=== PATIENT | male | born 1970 | race African-American/Black ===

== ENCOUNTER 2019-12-15 19:14 | Emergency (ER) | payer SELFPAY ==
[~2019-12-15] VITALS: Ht 180.3 cm; Wt 65.0 kg
[2019-12-15 19:17] VITALS: BP 110/65
--- NOTE | 2019-12-15 19:41 | NUR ---
SEATED IN CHAIR AT NURSES STATION IN VIEW OF STAFF FOR PT SAFETY. AWAIT TO [place].
--- NOTE | 2019-12-15 20:04 | NUR ---
TALKING WITH DR YAP AT THIS TIME, REMAINS IN CHAIR AT NURSES STATION, [facility].
[2019-12-15] MEDS ORDERED: OLANZAPINE 10 MG TABLET ONE (20:35)
--- NOTE | 2019-12-15 20:41 | NUR ---
MEDICATED PER ORDER, PT TAKING PO FLUIDS, REMAINS SEATED IN CHAIR AT NURSES STATION.
--- NOTE | 2019-12-15 20:44 | NUR ---
LABS BEING DRAWN AT THIS TIME, PT TOLERATE WELL.
[2019-12-15] MEDS ORDERED: PLEASE ENTER ALLERGIES MC SCH (21:00)
[2019-12-15] MEDS ORDERED: OLANZAPINE ODT 10MG PO ONE (21:00)
[2019-12-15 21:13] LABS: ALANINE AMINOTRANSFERASE 39 U/L (12-78); ALBUMIN 3.6 g/dL (3.4-5.0); ANION GAP 3 mmol/L (5-15); CHLORIDE 108 mmol/L (98-107); CREATININE 1.09 mg/dL (0.7-1.3)
[2019-12-15 21:14] LABS: ALKALINE PHOSPHATASE 104 U/L (45-117); BILIRUBIN,TOTAL 0.4 mg/dL (0.2-1.0); TOTAL PROTEIN 7.3 g/dL (6.4-8.2)
== END 2019-12-15 21:42 | disposition home or self-care (01) ==
LOC: ED 19:24
DX: F20.9 Schizophrenia, unspecified (principal); F31.9 Bipolar disorder, unspecified
CPT/HCPCS: 36415; 80053; 99284

== ENCOUNTER 2019-12-18 23:26 | Emergency (ER) | payer OTHER ==
[~2019-12-18] VITALS: Ht 180.3 cm; Wt 67.4 kg
[2019-12-18 23:27] VITALS: BP 142/99
[2019-12-19 01:02] LABS: BASOPHILS # (AUTO) 0.01 x10^3/uL (0-0.1); BASOPHILS % (AUTO) 0 % (0-1); EOSINOPHILS # (AUTO) 0.06 x10^3/uL (0-0.4); EOSINOPHILS % (AUTO) 1 % (1-7); LYMPHOCYTES # (AUTO) 1.01 x10^3/uL (1-3.4); LYMPHOCYTES % (AUTO) 12 % (22-44); MD NO; MEAN CORPUSCULAR HEMOGLOBIN 28.4 pg (27.5-34.5); MEAN PLATELET VOLUME 7.9 fL (7.4-10.4); MONOCYTES # (AUTO) 0.67 x10^3/uL (0.2-0.8); MONOCYTES % (AUTO) 8 % (2-9); NEUTROPHILS # (AUTO) 6.45 x10^3/uL (1.8-6.8); NEUTROPHILS % (AUTO) 79 % (42-75); PLATELET COUNT 301 x10^3/uL (130-400); RED BLOOD COUNT 5.39 x10^6/uL (4.38-5.82); RED CELL DISTRIBUTION WIDTH 14.9 % (9.4-14.8)
--- NOTE | 2019-12-19 01:06 | NUR ---
PT SITTING AT NURSES STATION OUT SIDE T 1 AWAITING A ROOM
[2019-12-19 01:07] LABS: ALANINE AMINOTRANSFERASE 37 U/L (12-78); ALBUMIN 4.6 g/dL (3.4-5.0); ANION GAP 7 mmol/L (5-15); CALCIUM 9.7 mg/dL (8.5-10.1); CHLORIDE 104 mmol/L (98-107)
[2019-12-19 01:08] LABS: SALICYLATE LEVEL < 1.7 mg/dL (2.8-20.0)
[2019-12-19 01:10] LABS: ALKALINE PHOSPHATASE 80 U/L (45-117); BILIRUBIN,TOTAL 1.6 mg/dL (0.2-1.0); CREATININE 1.25 mg/dL (0.7-1.3); TOTAL PROTEIN 8.9 g/dL (6.4-8.2)
[2019-12-19 03:16] LABS: AMPHETAMINE SCREEN, URINE Positive (Negative); BARBITURATE SCREEN, URINE Negative (Negative); BENZODIAZEPINE SCREEN, URINE Negative (Negative); CANNABINOID SCREEN, URINE Positive (Negative); COCAINE SCREEN, URINE Negative (Negative); METHADONE SCREEN, URINE Negative (Negative); OPIATE SCREEN, URINE Negative (Negative)
--- NOTE | 2019-12-19 03:49 | NUR ---
PT WATCHING TV IN NO ACUTE DISTRESS. ROOM SECURED FOR SAFETY. SITTER AT DOORWAY FOR SAFETY MONITORING.
--- NOTE | 2019-12-19 04:00 | NUR ---
TP RN: TELEPSYCH CONSULT INITIATED AT THIS TIME.
--- NOTE | 2019-12-19 05:37 | NUR ---
PT REPORTS HE IS HUNGRY, PROVIDED PT WITH SNACKS. ROOM SECURED FOR SAFETY. SITTER WATCHING FOR SAFETY FROM DOORWAY.
--- NOTE | 2019-12-19 06:17 | NUR ---
TP RN: PT CHART AND LEGAL HOLD FAXED TO [facility] AT THIS TIME. ORIGINAL LEGAL PLACED IN YELLOW FOLDER WITH CHART.
--- NOTE | 2019-12-19 06:53 | NUR ---
REPORT GIVEN TO CLAUDIA LEMONS.
--- NOTE | 2019-12-19 07:42 | NUR ---
PT CALLING TO NURSES STATION MULTIPLE TIMES. PT ASKING HOW HE CAN GET OUT OF HERE, PT AWARE HE IS ON A HOLD. PT STANDING IN DOORWAY AT THIS TIME TALKING WITH SITTER. PT CALM CURRENTLY. WILL CONTINUE TO MONITOR.
--- NOTE | 2019-12-19 08:05 | NUR ---
PT SITTING IN HALLWAY REQUESTING HIS CLOTHES, ALSO STATED HE DOESN'T APPRECIATE THE CUSTOMER SERVICE HE HAS RECEIVED, THAT NO ONE HAS DONE A PSYCH EVAL. PT OFFERED MEAL TRAY, HE REFUSED AND AGAIN STATED, "I JUST WANT MY CLOTHES SO I CAN LEAVE". PT REFUSING VITALS AND IS REFUSING TO ANSWER ANY OF THIS RN'S QUESTIONS. PT REPEATEDLY STATING, "I JUST WANT MY CLOTHES." SITTER AT DOOR WITH PT. AT THIS TIME, PT IS CALM. WILL CONTINUE TO MONITOR.
--- NOTE | 2019-12-19 08:08 | NUR ---
PT AT CHARGE NURSE STATION SPEAKING WITH CHARGE NURSE. PT STATED HE IS UNHAPPY WITH THE CUSTOMER SERVICE HE HAS RECEIVED AND HAS NOT RECIEVED A PSYCH EVAL NOR AN MEDS. WILL ASK ERP TO PLACE ORDER FOR MEDS FOR PT.
--- NOTE | 2019-12-19 08:15 | NUR ---
PT HAS RAN OUT THE AMBULANCE BAY DOOR, IN HOSPITAL GOWN, BASEBALL HAT AND BLACK SOCKS. [employer] CALLED, STATED THEY WOULD BROADCAST TO BRING PT BACK. SECURITY UNABLE TO CATCH PT.
--- NOTE | 2019-12-19 08:18 | NUR ---
AGILE DEVELOPER: PT AT CHARGE DESK. DEMANDING HIS CLOTHES, MEDICATIONS, FOOD. INSTRUCTED PT TO RETURN TO HIS ROOM AND I WOULD BRING HIM HIS BREAKFAST AND WOULD HAVE PROVIDER COME TALK TO HIM. PT INCREASED AGGITATION, HE LEFT OUT THE AMBULANCE BAY. SECURITY NOTIFIED AND FOLLOWED HIM OUT THE DOOR BUT PT EVADED THEM. PT WEARING HOSPITAL GOWN, SOCKS AND UNDERWEAR. [employer] NOTIFIED BY PRIMARY RN, BOBO.
[2019-12-19] MEDS ORDERED: ZIPRASIDONE 20 MG INJ IM ONE (08:30)
== END 2019-12-19 09:03 | disposition left against medical advice (07) ==
LOC: ED 12-19 06:53
DX: F20.9 Schizophrenia, unspecified (principal); Z72.9 Problem related to lifestyle, unspecified
CPT/HCPCS: 36415; 80053; 80307; 85025; 99284